=== PATIENT | female | born 1995 | race African-American/Black ===

== ENCOUNTER 2017-03-17 10:13 | Outpatient (CLI) | payer BC ==
--- NOTE | 2017-03-17 11:38 | ULT ---
GALLBLADDER ULTRASOUND: HISTORY: Right upper quadrant pain. FINDINGS: Real-time imaging of the right upper quadrant is somewhat limited due to body habitus and gas. The g allbladder is normal in appearance. The technologist reports a negative ultrasound Reynolds's sign. T he common duct is 4 mm. The visualized liver parenchyma shows no focal findings. The right kidney i s normal in size and nonobstructed. The pancreas is obscured. IMPRESSION: Heterogeneous echotexture which could indicate some fatty change. Otherwise, unremarkable exam. POS: [facility]
== END 2017-03-17 10:14 | disposition home or self-care (01) ==
LOC: ULT 10:13
PROVIDERS: ATTEND Nurse Practitioner Family
DX: R79.89 Other specified abnormal findings of blood chemistry (principal)
CPT/HCPCS: 76705

== ENCOUNTER 2023-09-06 10:50 | Emergency (ER) | payer BC, SELFPAY | END 2023-09-06 12:37 | disposition left against medical advice (07) | LOC: ERS 10:50 | DX: Z53.21 Procedure and treatment not carried out due to patient leaving prior to being seen by health care provider (principal) ==